=== PATIENT | male | born 1970 | race Caucasian/White ===

== ENCOUNTER 2017-07-16 03:55 | Inpatient (IN) | payer MEDICAID ==
[~2017-07-16] VITALS: Ht 175.3 cm; Wt 108.0 kg
[2017-07-16 05:17] LABS: PLATELET COUNT 164 x10^3mcL (130-400); RED CELL DISTRIBUTION WIDTH 13.1 % (11.5-14.5)
[2017-07-16 05:18] LABS: BASOPHIL % 0 % (0-2)
[2017-07-16 05:24] LABS: CALCIUM 9.8 mg/dL (8.5-10.1); CARBON DIOXIDE 25.8 mmol/L (21-32); CHLORIDE SERUM 94 mmol/L (98-107); CREATININE SERUM 0.9 mg/dL (0.7-1.3); GFR1 > 60 mL/min; GLUCOSE SERUM 376 mg/dL (74-106); POTASSIUM SERUM 3.9 mmol/L (3.5-5.1); SODIUM SERUM 136 mmol/L (136-145)
[2017-07-16] MEDS ORDERED: METFORMIN HCL500 MG (05:41)
[2017-07-16] MEDS ORDERED: LISINOPRIL40 MG (05:42)
[2017-07-16 05:43] LABS: ALBUMIN 3.6 g/dL (3.4-5.0); ALKALINE PHOSPHATASE 107 U/L (46-116); ALT/SGPT 30 U/L (16-63); AST/SGOT 17 U/L (15-37); BILIRUBIN TOTAL 1.07 mg/dL (0.20-1.00); LIPASE 144 IU/L (73-393)
[2017-07-16 05:47] LABS: TOTAL PROTEIN, SERUM 8.4 g/dL (6.4-8.2)
[2017-07-16 07:09] LABS: MAGNESIUM 1.7 mg/dL (1.8-2.4); PHOSPHOROUS 4.6 mg/dL (2.5-4.9)
[2017-07-16 07:10] LABS: CHOLESTEROL/HDL RATIO 3.7
[2017-07-16 07:30] LABS: T3 TOTAL 1.15 ng/mL
[2017-07-16 08:32] LABS: FREE THYROXINE INDEX 3.4 ug/dL (1.4-4.5); T4(THYROXINE) 9.9 ug/dL (4.7-13.3)
[2017-07-16 10:06] LABS: FREE T4 1.34 ng/dL (0.76-1.46)
[2017-07-16 11:07] VITALS: BP 139/91
[2017-07-16 13:47] VITALS: BP 146/87
[2017-07-16 17:20] VITALS: BP 114/69
[2017-07-16 20:44] VITALS: BP 126/75
[2017-07-16 21:42] LABS: AMPHETAMINE QUAL UR NONE DETECTED (NEG <=1000)
[2017-07-17 06:03] VITALS: BP 116/74
[2017-07-17 06:34] LABS: BASOPHIL % 0.3 % (0-2); PLATELET COUNT 136 x10^3mcL (130-400); RED CELL DISTRIBUTION WIDTH 13.7 % (11.5-14.5)
[2017-07-17 06:41] LABS: CALCIUM 7.8 mg/dL (8.5-10.1); CHLORIDE SERUM 109 mmol/L (98-107); CREATININE SERUM 0.8 mg/dL (0.7-1.3); GFR1 > 60 mL/min; GLUCOSE SERUM 192 mg/dL (74-106); MAGNESIUM 2.1 mg/dL (1.8-2.4); POTASSIUM SERUM 3.7 mmol/L (3.5-5.1); SODIUM SERUM 143 mmol/L (136-145)
[2017-07-17 09:17] VITALS: BP 115/67
[2017-07-17 14:22] VITALS: BP 131/83
[2017-07-17 17:13] VITALS: BP 147/86
[2017-07-17 19:27] VITALS: Ht 175.3 cm; Wt 108.0 kg
[2017-07-17 20:26] VITALS: BP 128/78
[2017-07-18 05:10] VITALS: BP 136/79
[2017-07-18 06:58] LABS: CALCIUM 8.1 mg/dL (8.5-10.1); CARBON DIOXIDE 24.3 mmol/L (21-32); CHLORIDE SERUM 108 mmol/L (98-107); CREATININE SERUM 0.7 mg/dL (0.7-1.3); GFR1 > 60 mL/min; GLUCOSE SERUM 163 mg/dL (74-106); SODIUM SERUM 141 mmol/L (136-145)
[2017-07-18 07:07] LABS: BASOPHIL % 0.3 % (0-2); RED CELL DISTRIBUTION WIDTH 13.8 % (11.5-14.5)
[2017-07-18 07:10] LABS: PLATELET COUNT 125 x10^3mcL (130-400)
[2017-07-18 09:33] VITALS: BP 161/93
[2017-07-18] MEDS ORDERED: LEVEMIR100 U/M1 SC (09:39)
[2017-07-18 13:09] VITALS: BP 161/93
[2017-07-18 13:34] VITALS: BP 144/98
[2017-07-18] MEDS ORDERED: TEST STRIPS1 EACH MC (13:46)
== END 2017-07-18 14:30 | disposition home or self-care (01) | DRG 221 ==
LOC: ED 03:55 → DU 06:19
PROVIDERS: Emergency Medicine; Surgery; ADMIT Family Medicine
PROC: 0WQF0ZZ Repair Abdominal Wall, Open Approach (ICD-10-PCS; 2017-07-16)
PROC: 0DB80ZZ Excision of Small Intestine, Open Approach (ICD-10-PCS; principal; 2017-07-16 08:00)
DX: K42.1 Umbilical hernia with gangrene (principal); D68.69 Other thrombophilia; E11.59 Type 2 diabetes mellitus with other circulatory complications; E87.8 Other disorders of electrolyte and fluid balance, not elsewhere classified; E11.65 Type 2 diabetes mellitus with hyperglycemia; E83.42 Hypomagnesemia; E66.9 Obesity, unspecified; Z68.32 Body mass index [BMI] 32.0-32.9, adult; I10 Essential (primary) hypertension; L40.0 Psoriasis vulgaris; E78.5 Hyperlipidemia, unspecified; Z79.84 Long term (current) use of oral hypoglycemic drugs; Z22.322 Carrier or suspected carrier of Methicillin resistant Staphylococcus aureus
CPT/HCPCS: 82962; 83880; 84439; J0330; J0690; J1815; J1885; J2250; J2270; J2405; J2704; J2710; J3010; J3475; J3490; J7030; Q0092

== ENCOUNTER 2017-07-24 16:55 | Emergency (ER) | payer MEDICAID ==
[~2017-07-24] VITALS: Ht 175.3 cm; Wt 107.0 kg
[~2017-07-24 16:55] MED LIST: LEVEMIR100 U/M1 SC; LISINOPRIL40 MG; METFORMIN HCL500 MG; TEST STRIPS1 EACH MC
[2017-07-24 19:26] VITALS: BP 135/80
== END 2017-07-24 19:20 | disposition home or self-care (01) ==
LOC: ED 16:55
DX: T81.30XD Disruption of wound, unspecified, subsequent encounter (principal); I10 Essential (primary) hypertension; E11.9 Type 2 diabetes mellitus without complications; Z90.49 Acquired absence of other specified parts of digestive tract

== ENCOUNTER 2017-07-28 22:30 | Inpatient (IN) | payer MEDICAID ==
[~2017-07-28] VITALS: Ht 175.3 cm; Wt 105.7 kg
[2017-07-29 02:22] LABS: CALCIUM 9.3 mg/dL (8.5-10.1); CARBON DIOXIDE 28.9 mmol/L (21-32); CHLORIDE SERUM 102 mmol/L (98-107); CREATININE SERUM 0.8 mg/dL (0.7-1.3); GFR1 > 60 mL/min; GLUCOSE SERUM 246 mg/dL (74-106); POTASSIUM SERUM 3.9 mmol/L (3.5-5.1); SODIUM SERUM 139 mmol/L (136-145)
[2017-07-29 02:25] LABS: ALBUMIN 3.2 g/dL (3.4-5.0); ALKALINE PHOSPHATASE 81 U/L (46-116); ALT/SGPT 19 U/L (16-63); AST/SGOT 12 U/L (15-37); BILIRUBIN TOTAL 0.43 mg/dL (0.20-1.00); TOTAL PROTEIN, SERUM 7.5 g/dL (6.4-8.2)
[2017-07-29 02:35] LABS: BASOPHIL % 0.7 % (0-2); PLATELET COUNT 206 x10^3mcL (130-400); RED CELL DISTRIBUTION WIDTH 12.4 % (11.5-14.5)
[2017-07-29 04:12] LABS: T3 TOTAL 1.04 ng/mL
[2017-07-29 04:24] VITALS: BP 156/99
[2017-07-29 04:27] LABS: MAGNESIUM 1.5 mg/dL (1.8-2.4); PHOSPHOROUS 3.7 mg/dL (2.5-4.9)
[2017-07-29 04:28] LABS: CHOLESTEROL/HDL RATIO 1.8
[2017-07-29 04:38] LABS: FREE T4 1.17 ng/dL (0.76-1.46); FREE THYROXINE INDEX 3.6 ug/dL (1.4-4.5); T4(THYROXINE) 10.2 ug/dL (4.7-13.3)
[2017-07-29 04:57] VITALS: BP 156/99
[2017-07-29 06:14] LABS: microscopic required? NO
[2017-07-29 07:06] LABS: urine erythrocyte NEGATIVE (NEGATIVE)
[2017-07-29 07:18] LABS: AMPHETAMINE QUAL UR NONE DETECTED (NEG <=1000)
[2017-07-29 09:39] VITALS: BP 148/90
[2017-07-29 13:37] VITALS: BP 134/87
[2017-07-29 17:53] VITALS: BP 143/94
[2017-07-29 21:46] VITALS: BP 113/77
[2017-07-30 05:55] VITALS: BP 127/80
[2017-07-30 06:37] LABS: CALCIUM 8.4 mg/dL (8.5-10.1); CARBON DIOXIDE 25.4 mmol/L (21-32); CHLORIDE SERUM 107 mmol/L (98-107); CREATININE SERUM 0.7 mg/dL (0.7-1.3); GFR1 > 60 mL/min; GLUCOSE SERUM 156 mg/dL (74-106); MAGNESIUM 1.7 mg/dL (1.8-2.4); POTASSIUM SERUM 3.7 mmol/L (3.5-5.1); SODIUM SERUM 140 mmol/L (136-145)
[2017-07-30 06:45] LABS: BASOPHIL % 0.5 % (0-2); PLATELET COUNT 195 x10^3mcL (130-400); RED CELL DISTRIBUTION WIDTH 12.9 % (11.5-14.5)
[2017-07-30 09:15] VITALS: BP 145/92
[2017-07-30 11:40] VITALS: BP 151/92
[2017-07-30 18:12] VITALS: BP 140/81
[2017-07-30 21:36] VITALS: BP 133/88
[2017-07-31 05:37] VITALS: BP 153/94
[2017-07-31 06:14] LABS: BASOPHIL % 0.6 % (0-2); PLATELET COUNT 203 x10^3mcL (130-400); RED CELL DISTRIBUTION WIDTH 13.2 % (11.5-14.5)
[2017-07-31 06:27] LABS: CALCIUM 8.6 mg/dL (8.5-10.1); CHLORIDE SERUM 106 mmol/L (98-107); CREATININE SERUM 0.7 mg/dL (0.7-1.3); GFR1 > 60 mL/min; GLUCOSE SERUM 167 mg/dL (74-106); MAGNESIUM 1.6 mg/dL (1.8-2.4); POTASSIUM SERUM 3.8 mmol/L (3.5-5.1); SODIUM SERUM 140 mmol/L (136-145)
[2017-07-31 08:00] VITALS: BP 141/92
[2017-07-31 11:55] VITALS: BP 155/97
[2017-07-31 16:55] VITALS: BP 152/87
[2017-07-31 21:36] VITALS: BP 147/89
[2017-08-01 05:25] VITALS: BP 150/88
[2017-08-01 06:05] LABS: CALCIUM 9.1 mg/dL (8.5-10.1); CARBON DIOXIDE 26.7 mmol/L (21-32); CHLORIDE SERUM 104 mmol/L (98-107); CREATININE SERUM 0.8 mg/dL (0.7-1.3); GFR1 > 60 mL/min; GLUCOSE SERUM 156 mg/dL (74-106); MAGNESIUM 2.3 mg/dL (1.8-2.4); POTASSIUM SERUM 3.4 mmol/L (3.5-5.1); SODIUM SERUM 140 mmol/L (136-145)
[2017-08-01 06:28] LABS: BASOPHIL % 0.6 % (0-2); PLATELET COUNT 220 x10^3mcL (130-400)
[2017-08-01 09:00] VITALS: BP 147/93
[2017-08-01 13:49] VITALS: BP 122/86
[2017-08-01] MEDS ORDERED: HYDROCHLOROTH12.5 M3 PO (14:12)
[2017-08-01] MEDS ORDERED: NORCO1 TA2 PO (14:13)
[2017-08-01] MEDS ORDERED: COL100 PO (14:14)
[2017-08-01] MEDS ORDERED: GOOD SENSE ASP325 MG PO (14:26)
[2017-08-01 14:44] VITALS: BP 122/86
[2017-08-01] MEDS ORDERED: LEVOFLOXACIN500 M1 PO (15:09)
[2017-08-01] MEDS ORDERED: LAC PO (15:09)
[2017-08-01] MEDS ORDERED: ASPIR 8181 MG PO (16:01)
== END 2017-08-01 16:00 | disposition home or self-care (01) | DRG 721 ==
LOC: ED 22:30 → DU 07-29 03:02
PROVIDERS: Emergency Medicine; ADMIT Family Medicine
DX: T81.4XXA Infection following a procedure, initial encounter (principal); D68.69 Other thrombophilia; E11.59 Type 2 diabetes mellitus with other circulatory complications; E44.1 Mild protein-calorie malnutrition; E11.65 Type 2 diabetes mellitus with hyperglycemia; E83.42 Hypomagnesemia; L02.216 Cutaneous abscess of umbilicus; B96.1 Klebsiella pneumoniae [K. pneumoniae] as the cause of diseases classified elsewhere; I10 Essential (primary) hypertension; L40.9 Psoriasis, unspecified; E78.5 Hyperlipidemia, unspecified; E66.9 Obesity, unspecified; Z68.34 Body mass index [BMI] 34.0-34.9, adult; Z79.4 Long term (current) use of insulin; Y83.4 Other reconstructive surgery as the cause of abnormal reaction of the patient, or of later complication, without mention of misadventure at the time of the procedure; Y92.009 Unspecified place in unspecified non-institutional (private) residence as the place of occurrence of the external cause
CPT/HCPCS: 82962; 83880; 84439; J0295; J0690; J1200; J1885; J1940; J1956; J2270; J2405; J3475; J7030; Q0092

== ENCOUNTER 2017-08-19 20:12 | Emergency (ER) | payer SELFPAY ==
[~2017-08-19 20:12] MED LIST changes: +ASPIR 8181 MG PO; +COL100 PO; +GOOD SENSE ASP325 MG PO; +HYDROCHLOROTH12.5 M3 PO; +LAC PO; +LEVOFLOXACIN500 M1 PO; +NORCO1 TA2 PO
[2017-08-19 23:59] VITALS: BP 135/88
== END 2017-08-19 23:59 | disposition home or self-care (01) ==
LOC: ED 20:12
DX: T81.30XA Disruption of wound, unspecified, initial encounter (principal); K43.9 Ventral hernia without obstruction or gangrene; I10 Essential (primary) hypertension; E11.9 Type 2 diabetes mellitus without complications; E78.00 Pure hypercholesterolemia, unspecified; Z79.84 Long term (current) use of oral hypoglycemic drugs

== ENCOUNTER 2020-02-22 13:40 | Inpatient (IN) | payer OTHER ==
[~2020-02-22] VITALS: Ht 175.3 cm; Wt 100.7 kg
[2020-02-22 13:50] VITALS: Ht 175.3 cm; Wt 100.7 kg
[2020-02-22 15:07] LABS: BASOPHIL % 0.1 % (0-2); PLATELET COUNT 222 x10^3mcL (130-400); RED CELL DISTRIBUTION WIDTH 14.5 % (11.5-14.5)
[2020-02-22 15:21] LABS: ALKALINE PHOSPHATASE 105 U/L (46-116); ALT/SGPT 14 U/L (16-63); AST/SGOT 4 U/L (15-37); CALCIUM 9.1 mg/dL (8.5-10.1); CARBON DIOXIDE 16.6 mmol/L (21-32); CHLORIDE SERUM 97 mmol/L (98-107); CREATININE SERUM 1.3 mg/dL (0.7-1.3); GFR1 > 60 mL/min; GLUCOSE SERUM 359 mg/dL (74-106); POTASSIUM SERUM 3.8 mmol/L (3.5-5.1); SODIUM SERUM 134 mmol/L (136-145); TOTAL PROTEIN, SERUM 8.2 g/dL (6.4-8.2)
[2020-02-22 15:22] LABS: ALBUMIN 2.6 g/dL (3.4-5.0)
[2020-02-22 16:18] LABS: UA SPECIFIC GRAVITY 1.025 (1.005-1.035); microscopic required? YES; urine erythrocyte NEGATIVE (NEGATIVE)
[2020-02-22 18:20] LABS: C REACTIVE PROTEIN 43.9 mg/dL (<=0.9); CHOLESTEROL/HDL RATIO 2.5
[2020-02-22 20:15] LABS: CALCIUM 8.5 mg/dL (8.5-10.1); CARBON DIOXIDE 17.5 mmol/L (21-32); CHLORIDE SERUM 102 mmol/L (98-107); GFR1 > 60 mL/min; GLUCOSE SERUM 208 mg/dL (74-106); MAGNESIUM 1.7 mg/dL (1.8-2.4); POTASSIUM SERUM 3.9 mmol/L (3.5-5.1); SODIUM SERUM 135 mmol/L (136-145)
[2020-02-23 00:36] LABS: CALCIUM 8.4 mg/dL (8.5-10.1); CARBON DIOXIDE 17.7 mmol/L (21-32); CHLORIDE SERUM 104 mmol/L (98-107); CREATININE SERUM 0.8 mg/dL (0.7-1.3); GFR1 > 60 mL/min; GLUCOSE SERUM 267 mg/dL (74-106); MAGNESIUM 1.7 mg/dL (1.8-2.4); PHOSPHOROUS 1.6 mg/dL (2.5-4.9); POTASSIUM SERUM 4.6 mmol/L (3.5-5.1); SODIUM SERUM 135 mmol/L (136-145)
[2020-02-23] MEDS ORDERED: EPANED1 MG/1 ML PO (01:01)
[2020-02-23 04:20] LABS: CALCIUM 8.2 mg/dL (8.5-10.1); CARBON DIOXIDE 20.4 mmol/L (21-32); CHLORIDE SERUM 103 mmol/L (98-107); CREATININE SERUM 0.8 mg/dL (0.7-1.3); GFR1 > 60 mL/min; GLUCOSE SERUM 223 mg/dL (74-106); MAGNESIUM 1.6 mg/dL (1.8-2.4); SODIUM SERUM 134 mmol/L (136-145)
[2020-02-23 04:33] LABS: BASOPHIL % 0 % (0-2); PLATELET COUNT 186 x10^3mcL (130-400); RED CELL DISTRIBUTION WIDTH 14.2 % (11.5-14.5)
[2020-02-23 09:08] LABS: CALCIUM 7.1 mg/dL (8.5-10.1); CARBON DIOXIDE 16.2 mmol/L (21-32); CHLORIDE SERUM 103 mmol/L (98-107); CREATININE SERUM 0.7 mg/dL (0.7-1.3); GFR1 > 60 mL/min; GLUCOSE SERUM 149 mg/dL (74-106); MAGNESIUM 1.4 mg/dL (1.8-2.4); PHOSPHOROUS 1.1 mg/dL (2.5-4.9); SODIUM SERUM 131 mmol/L (136-145)
[2020-02-23 09:14] LABS: POTASSIUM SERUM 5.6 mmol/L (3.5-5.1)
[2020-02-23 12:53] LABS: AMPHETAMINE QUAL UR NONE DETECTED (See below)
[2020-02-23 14:31] LABS: CALCIUM 7.7 mg/dL (8.5-10.1); CARBON DIOXIDE 20.9 mmol/L (21-32); CHLORIDE SERUM 103 mmol/L (98-107); CREATININE SERUM 0.8 mg/dL (0.7-1.3); GFR1 > 60 mL/min; GLUCOSE SERUM 171 mg/dL (74-106); MAGNESIUM 1.4 mg/dL (1.8-2.4); PHOSPHOROUS 1.1 mg/dL (2.5-4.9); POTASSIUM SERUM 3.3 mmol/L (3.5-5.1); SODIUM SERUM 136 mmol/L (136-145)
[2020-02-23 17:19] LABS: CALCIUM 7.6 mg/dL (8.5-10.1); CARBON DIOXIDE 19.1 mmol/L (21-32); CHLORIDE SERUM 104 mmol/L (98-107); CREATININE SERUM 0.7 mg/dL (0.7-1.3); GFR1 > 60 mL/min; GLUCOSE SERUM 175 mg/dL (74-106); MAGNESIUM 1.4 mg/dL (1.8-2.4); PHOSPHOROUS 1.1 mg/dL (2.5-4.9); POTASSIUM SERUM 3.7 mmol/L (3.5-5.1); SODIUM SERUM 137 mmol/L (136-145)
[2020-02-23 21:50] LABS: CARBON DIOXIDE 19.4 mmol/L (21-32); CHLORIDE SERUM 101 mmol/L (98-107); CREATININE SERUM 0.8 mg/dL (0.7-1.3); GFR1 > 60 mL/min; GLUCOSE SERUM 216 mg/dL (74-106); POTASSIUM SERUM 3.6 mmol/L (3.5-5.1); SODIUM SERUM 134 mmol/L (136-145)
[2020-02-23 21:53] LABS: MAGNESIUM 1.5 mg/dL (1.8-2.4); PHOSPHOROUS 1.3 mg/dL (2.5-4.9)
[2020-02-24 02:51] LABS: CALCIUM 6.4 mg/dL (8.5-10.1); CARBON DIOXIDE 15.9 mmol/L (21-32); CHLORIDE SERUM 107 mmol/L (98-107); CREATININE SERUM 0.6 mg/dL (0.7-1.3); GFR1 > 60 mL/min; GLUCOSE SERUM 177 mg/dL (74-106); MAGNESIUM 1.3 mg/dL (1.8-2.4); POTASSIUM SERUM 4.3 mmol/L (3.5-5.1); SODIUM SERUM 137 mmol/L (136-145)
[2020-02-24 04:20] LABS: BASOPHIL % 0.2 % (0-2); PLATELET COUNT 164 x10^3mcL (130-400); RED CELL DISTRIBUTION WIDTH 13.9 % (11.5-14.5)
[2020-02-24 04:28] LABS: ALKALINE PHOSPHATASE 74 U/L (46-116); ALT/SGPT 23 U/L (16-63); AST/SGOT 41 U/L (15-37); BILIRUBIN TOTAL 0.4 mg/dL (0.20-1.00); CALCIUM 7.7 mg/dL (8.5-10.1); CARBON DIOXIDE 18.1 mmol/L (21-32); CHLORIDE SERUM 102 mmol/L (98-107); CREATININE SERUM 0.9 mg/dL (0.7-1.3); GFR1 > 60 mL/min; GLUCOSE SERUM 174 mg/dL (74-106); MAGNESIUM 1.4 mg/dL (1.8-2.4); PHOSPHOROUS 1.2 mg/dL (2.5-4.9); SODIUM SERUM 134 mmol/L (136-145); TOTAL PROTEIN, SERUM 6.5 g/dL (6.4-8.2)
[2020-02-24 04:36] LABS: C REACTIVE PROTEIN 29.6 mg/dL (<=0.9)
[2020-02-24 08:26] LABS: CALCIUM 8.4 mg/dL (8.5-10.1); CARBON DIOXIDE 26.1 mmol/L (21-32); CHLORIDE SERUM 106 mmol/L (98-107); CREATININE SERUM 0.5 mg/dL (0.7-1.3); GFR1 > 60 mL/min; GLUCOSE SERUM 88 mg/dL (74-106); MAGNESIUM 2.1 mg/dL (1.8-2.4); PHOSPHOROUS 3.1 mg/dL (2.5-4.9); POTASSIUM SERUM 3.4 mmol/L (3.5-5.1); SODIUM SERUM 143 mmol/L (136-145)
[2020-02-24 12:34] LABS: CALCIUM 7.3 mg/dL (8.5-10.1); CARBON DIOXIDE 20.4 mmol/L (21-32); CHLORIDE SERUM 101 mmol/L (98-107); CREATININE SERUM 0.7 mg/dL (0.7-1.3); GFR1 > 60 mL/min; GLUCOSE SERUM 184 mg/dL (74-106); MAGNESIUM 1.4 mg/dL (1.8-2.4); PHOSPHOROUS 1.5 mg/dL (2.5-4.9); POTASSIUM SERUM 3.4 mmol/L (3.5-5.1); SODIUM SERUM 132 mmol/L (136-145)
[2020-02-24 22:18] LABS: ALBUMIN 1.7 g/dL (3.4-5.0); ALKALINE PHOSPHATASE 68 U/L (46-116); ALT/SGPT 30 U/L (16-63); AST/SGOT 53 U/L (15-37); BILIRUBIN TOTAL 0.3 mg/dL (0.20-1.00); CALCIUM 7.8 mg/dL (8.5-10.1); CARBON DIOXIDE 19.2 mmol/L (21-32); CHLORIDE SERUM 102 mmol/L (98-107); CREATININE SERUM 0.8 mg/dL (0.7-1.3); GFR1 > 60 mL/min; GLUCOSE SERUM 266 mg/dL (74-106); POTASSIUM SERUM 3.9 mmol/L (3.5-5.1); SODIUM SERUM 134 mmol/L (136-145); TOTAL PROTEIN, SERUM 5.9 g/dL (6.4-8.2)
[2020-02-25 00:12] VITALS: BP 126/82
[2020-02-25 05:05] VITALS: BP 117/78
[2020-02-25 07:30] LABS: BASOPHIL % 0.9 % (0-2); CALCIUM 7.9 mg/dL (8.5-10.1); CARBON DIOXIDE 22.4 mmol/L (21-32); CHLORIDE SERUM 105 mmol/L (98-107); CREATININE SERUM 0.6 mg/dL (0.7-1.3); GFR1 > 60 mL/min; GLUCOSE SERUM 146 mg/dL (74-106); MAGNESIUM 1.6 mg/dL (1.8-2.4); PHOSPHOROUS 2.1 mg/dL (2.5-4.9); PLATELET COUNT 151 x10^3mcL (130-400); POTASSIUM SERUM 3.6 mmol/L (3.5-5.1); SODIUM SERUM 139 mmol/L (136-145)
[2020-02-25 07:35] LABS: RED CELL DISTRIBUTION WIDTH 14.6 % (11.5-14.5)
[2020-02-25 09:31] VITALS: BP 127/82
[2020-02-25 12:06] LABS: C REACTIVE PROTEIN 22.9 mg/dL (<=0.9)
[2020-02-25 13:16] VITALS: BP 157/89
[2020-02-25 17:11] VITALS: BP 146/78
[2020-02-25 21:21] VITALS: BP 136/89
[2020-02-26 04:09] VITALS: BP 149/63
[2020-02-26 08:48] LABS: BASOPHIL % 0.3 % (0-2); PLATELET COUNT 154 x10^3mcL (130-400); RED CELL DISTRIBUTION WIDTH 14.3 % (11.5-14.5)
[2020-02-26 09:16] VITALS: BP 145/56
[2020-02-26 09:18] LABS: CALCIUM 7.9 mg/dL (8.5-10.1); CARBON DIOXIDE 26.9 mmol/L (21-32); CHLORIDE SERUM 97 mmol/L (98-107); CREATININE SERUM 0.7 mg/dL (0.7-1.3); GFR1 > 60 mL/min; GLUCOSE SERUM 187 mg/dL (74-106); MAGNESIUM 1.4 mg/dL (1.8-2.4); POTASSIUM SERUM 3.7 mmol/L (3.5-5.1); SODIUM SERUM 133 mmol/L (136-145)
[2020-02-26 12:15] VITALS: BP 117/77
[2020-02-26 15:42] VITALS: BP 113/69
[2020-02-26 19:59] VITALS: BP 142/72
[2020-02-27 04:31] VITALS: BP 99/60
[2020-02-27 08:27] LABS: BASOPHIL % 0.2 % (0-2); PLATELET COUNT 141 x10^3mcL (130-400); RED CELL DISTRIBUTION WIDTH 14.5 % (11.5-14.5)
[2020-02-27 08:45] VITALS: BP 93/64
[2020-02-27 09:26] LABS: CALCIUM 7.7 mg/dL (8.5-10.1); CARBON DIOXIDE 26.1 mmol/L (21-32); CHLORIDE SERUM 100 mmol/L (98-107); CREATININE SERUM 0.8 mg/dL (0.7-1.3); GFR1 > 60 mL/min; GLUCOSE SERUM 140 mg/dL (74-106); MAGNESIUM 1.6 mg/dL (1.8-2.4); PHOSPHOROUS 3.1 mg/dL (2.5-4.9); POTASSIUM SERUM 3.6 mmol/L (3.5-5.1); SODIUM SERUM 135 mmol/L (136-145)
[2020-02-27 10:05] LABS: C REACTIVE PROTEIN 16.8 mg/dL (<=0.9)
[2020-02-27 12:03] VITALS: BP 109/70
[2020-02-27 16:40] VITALS: BP 118/77
[2020-02-27 20:13] VITALS: BP 128/68
[2020-02-28 04:26] VITALS: BP 118/77
[2020-02-28 07:18] LABS: BASOPHIL % 0.2 % (0-2); PLATELET COUNT 172 x10^3mcL (130-400); RED CELL DISTRIBUTION WIDTH 14.5 % (11.5-14.5)
[2020-02-28 07:48] LABS: CALCIUM 8.2 mg/dL (8.5-10.1); CARBON DIOXIDE 23.9 mmol/L (21-32); CHLORIDE SERUM 101 mmol/L (98-107); CREATININE SERUM 0.8 mg/dL (0.7-1.3); GFR1 > 60 mL/min; GLUCOSE SERUM 240 mg/dL (74-106); MAGNESIUM 1.8 mg/dL (1.8-2.4); PHOSPHOROUS 3.8 mg/dL (2.5-4.9); POTASSIUM SERUM 4.1 mmol/L (3.5-5.1); SODIUM SERUM 136 mmol/L (136-145)
[2020-02-28 07:59] LABS: C REACTIVE PROTEIN 12.3 mg/dL (<=0.9)
[2020-02-28 09:07] VITALS: BP 112/79
[2020-02-28 12:28] VITALS: BP 116/72
[2020-02-28] MEDS ORDERED: BACTRIM1 TAB PO (13:57)
[2020-02-28] MEDS ORDERED: DECADRON6 MG PO (14:00)
[2020-02-28] MEDS ORDERED: XARELTO2.5 MG PO (14:01)
[2020-02-28] MEDS ORDERED: LANTI SQ (14:03)
[2020-02-28] MEDS ORDERED: NOVI SQ (14:05)
[2020-02-28 15:46] VITALS: BP 116/72
[2020-02-28 16:16] VITALS: BP 104/62
== END 2020-02-28 17:03 | disposition home or self-care (01) | DRG 871 ==
LOC: ED 13:40 → IC 17:30 → DU 02-24 17:06
PROVIDERS: Emergency Medicine; ADMIT Family Medicine; ATTEND Family Medicine
PROC: 02HV33Z Insertion of Infusion Device into Superior Vena Cava, Percutaneous Approach (ICD-10-PCS; principal; 2020-02-24)
PROC: B548ZZA Ultrasonography of Superior Vena Cava, Guidance (ICD-10-PCS; 2020-02-24)
DX: A41.89 Other specified sepsis (principal); E11.10 Type 2 diabetes mellitus with ketoacidosis without coma; U07.1 COVID-19; J12.89 Other viral pneumonia; E87.1 Hypo-osmolality and hyponatremia; E44.0 Moderate protein-calorie malnutrition; I10 Essential (primary) hypertension; E78.5 Hyperlipidemia, unspecified; E11.9 Type 2 diabetes mellitus without complications; E83.42 Hypomagnesemia; E83.39 Other disorders of phosphorus metabolism; Z68.32 Body mass index [BMI] 32.0-32.9, adult
CPT/HCPCS: 36600; 82962; 83880; 85378; 87491; 87591; G0378; J0456; J0696; J1100; J1642; J1644; J1815; J3370; J3480; J7030; Q0092; U0003-CS

== ENCOUNTER 2020-03-04 22:50 | Inpatient (IN) | payer SELFPAY ==
[~2020-03-04] VITALS: Ht 175.3 cm; Wt 90.7 kg
[~2020-03-04 22:50] MED LIST changes: +BACTRIM1 TAB PO; +DECADRON6 MG PO; +EPANED1 MG/1 ML PO; +LANTI SQ; +NOVI SQ; +XARELTO2.5 MG PO
[2020-03-04 23:13] VITALS: Ht 175.3 cm; Wt 90.7 kg
--- NOTE | 2020-03-04 23:20 | NUR ---
PT BIB [facility] FOR SOB AFTER EATING. PT REPORTS HE GOT THE HICCUPS AND "COULD NOT BREATH". PER MEDIC PT REPORTED THAT HIS BREATHING STOPPED COMPLETELY. PT ALSO REPORTING THAT HE "THINKS" IT WAS A PANICK ATTACK. PT REPORTS HES BEEN STRESSED ABOUT HIS BLOOD SUGAR. PER MEDIC, PT BLOOD SUGAR 534. PT LUNG SOUNDS CLEAR BILATERALLY AT THIS TIME. PT BREATHING E/U, NO S/S OF DISTRESS NOTED. PT IS A&OX4, BREATHING E/U, NO S/S OF DISTRESS NOTED.
--- NOTE | 2020-03-05 00:10 | NUR ---
PT STATING TO C/O FEELING ANXIOUS. PT NOTED WITH CONTINUOUS HICCUPS, PT TRYING TO HOLD HIS BREATH TO CONTROL THE HICCUPS, HOWEVER UNSUCCESSFUL AT THIS TIME. INFORMED OF PT ANXIETY. AWAITING FURTHER ORDERS.
[2020-03-05 00:30] LABS: BASOPHIL % 0.1 % (0-2); PLATELET COUNT 379 x10^3mcL (130-400); RED CELL DISTRIBUTION WIDTH 13.9 % (11.5-14.5)
[2020-03-05 00:48] LABS: BILIRUBIN TOTAL 0.3 mg/dL (0.20-1.00); CALCIUM 8.6 mg/dL (8.5-10.1); CARBON DIOXIDE 18.1 mmol/L (21-32); CHOLESTEROL/HDL RATIO 3.5; CREATININE SERUM 1.5 mg/dL (0.7-1.3); POTASSIUM SERUM 4.8 mmol/L (3.5-5.1); TOTAL PROTEIN, SERUM 7.1 g/dL (6.4-8.2)
[2020-03-05 00:54] LABS: ALBUMIN 2.2 g/dL (3.4-5.0); T3 TOTAL 0.59 ng/mL
[2020-03-05 01:00] LABS: FREE T4 1.15 ng/dL (0.76-1.46); FREE THYROXINE INDEX 2.1 ug/dL (1.4-4.5); T4(THYROXINE) 5.6 ug/dL (4.7-13.3)
--- NOTE | 2020-03-05 01:14 | NUR ---
PT MEDICATED PER EMAR FOR FEELING "ANXIOUS". PT IS REPORTING THAT HE CONTINUES TO HAVE "PANICK ATTACKS". PT NOTED BREATHING E/U, NO S/S OF DISTRESS NOTED AT THIS TIME. PT IS SITTING UP IN BED AND IN VIEW OF NURSES STATION. 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 VITAL SIGNS STABLE. PT REQUESTED ICE CHIPS, OKAY TO GIVE PER DR DOSHI.
--- NOTE | 2020-03-05 01:40 | NUR ---
PT NOTED RESTING IN BED IN A POSITION OF COMFORT WITH EYES CLOSED. PT EASILY AROUSABLE AND RESPONDS TO VERBAL STIMULI. PT REPORTS "I FEEL BETTER". NO S/S OF DISTRESS NOTED
--- NOTE | 2020-03-05 03:31 | NUR ---
PT ASSISTED WITH URINAL AT THIS TIME. PT ACCIDENTALLY GOT URINE ON PANTS, PT PROVIDED WITH PAPER SCRUBS, NEW SOCK, CHANGE OF BED LINEN, AND NEW BLANKET AT THIS TIME. 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 NO S/S OF DISTRESS NOTED
[2020-03-05 03:46] LABS: microscopic required? NO
[2020-03-05 04:23] LABS: urine erythrocyte NEGATIVE (NEGATIVE)
[2020-03-05 04:36] LABS: AMPHETAMINE QUAL UR NONE DETECTED (See below)
--- NOTE | 2020-03-05 04:52 | NUR ---
PT NOTED RESTING IN BED IN A POSITION OF COMFORT WITH EYES CLOSED. PT EASILY AROUSABLE, BREATHING E/U, NO S/S OF DISTRESS NOTED. 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
--- NOTE | 2020-03-05 06:55 | NUR ---
PT NOTED RESTING IN BED IN A POSITION OF COMFORT WITH EYES CLOSED. PT BREATHING E/U, NO S/S OF DISTRESS NOTED. PT REMAINS ON FULL APPEALS NURSE AND IN VIEW OF NURSES STATION.
--- NOTE | 2020-03-05 07:11 | NUR ---
RECEIVED REPORT FROM ANGIE LYNN
--- NOTE | 2020-03-05 07:21 | NUR ---
REPORT GIVEN TO SHANE ESTEVEZ TO ASSUME PT CARE. ALL QUESTIONS AND CONCERNS ANSWERED AT THIS TIME.
--- NOTE | 2020-03-05 08:00 | NUR ---
PT SITTING UP IN BED, AAOX4, NO ACUTE DISTRESS NOTED, PT EATING BREAKFAST, DENIES PAIN, SAFETY PRECAUTIONS IN PLACE, CALL LIGHT WITHIN REACH, WILL MONITOR.
--- NOTE | 2020-03-05 08:35 | NUR ---
PT TO CT VIA WHEELCHAIR WITH TECH,
--- NOTE | 2020-03-05 08:45 | NUR ---
PT RETURNED FROM CT VIA WHEELCHAIR WITH NO INCIDENT
--- NOTE | 2020-03-05 09:01 | NUR ---
CALLED TO GIVE REPORT TO JURGEN, WILL CALL BACK IN COVID SECTION
--- NOTE | 2020-03-05 09:12 | NUR ---
LAB AT BEDSIDE
--- NOTE | 2020-03-05 09:40 | NUR ---
REPORT GIVEN TO SHANE SEAMAN TO ASSUME CARE OF THE PT.
[2020-03-05 10:16] LABS: MAGNESIUM 1.7 mg/dL (1.8-2.4); PHOSPHOROUS 2.8 mg/dL (2.5-4.9)
--- NOTE | 2020-03-05 10:16 | NUR ---
RECEIVED PT FROM ED VIA [facility]UR[facility]A ACCOMPANIED BY NURSES. PT AOX4, VERBALLY RESPONSIVE, ABLE TO MAKE NEEDS KNOWN. ON DROPLET PRECAUTION FOR POSITIVE TEST FOR COVID19 ON 02/26/2020. CURRENTLY ON ROOM AIR WITH 92%SAT, DENIES SOB, NO ACUTE RESPIRATORY DISTRESS. ATTACHED TO TELE 43 NSR. DENIES CHEST PAIN/PRESSURE. NO PAIN OR DISCOMFORT AT THIS TIME. PT IS AMBULATORY AT BASELINE WITH MILD GENERALIZED WEAKNESS. ORIENTED PATIENT TO ROOM, CALL LIGHT SYSTEM, AND BED CONTROLS, ABLE TO DEMONSTRATE UNDERSTANDING. RECEIVED PT WITH IV SITE TO RFA 20G AND TO LEFT HAND 22G CONTINUE WITH NS AT 100CC/HR. CALL LIGHT WITHIN REACH. WILL CONTINUE TO MONITOR.
[2020-03-05 11:41] VITALS: BP 118/72
[2020-03-05 13:33] VITALS: BP 131/79
[2020-03-05 16:13] VITALS: BP 129/72
--- NOTE | 2020-03-05 18:50 | NUR ---
PT IN BED AWAKE WATCHING TV. ON DROPLET ISOLATION FOR PREVIOUS POSITIVE RESULT FOR COVID19. ON RA, DENIES SOB, NO ACUTE RESPIRATORY DISTRESS. NO PAIN OR DISCOMFORT AT THIS TIME. ON TELE 43 NSR. IV SITE TO [facility] RUNNING ON NS AT 100CC/HR. IV TO [facility]. BED IN LOWEST POSITION. CALL LIGHT WITHIN REACH. WILL ENDORSE CARE TO IN COMING NURSE.
--- NOTE | 2020-03-05 19:31 | NUR ---
Received pt. from day shift, currently resting in bed. Pt. is a/o x4, able to make needs known, able to follow commands, no c/o h/a. Pt. is breathign e/u on RA, no acute distress or SOB noted. Pt. has no c/o chest pain or pain at this time, will cont. to monitor. Pt. LBM today, no issues reported, or c/o of pain. Pt. at this time has BRP, slight gen weakness, no skin issues, and c/o of hiccups, given thorazine at 1713, will cont. to monitor. 2 IV sites, patent on RFA and AAKASH, both dressing CDI, NS running @ 100 cc on RFA, will cont. to monitor. Pt. educated on when and how to use call light system, bed set at lowest position, will cont. to monitor.
[2020-03-05 21:39] VITALS: BP 120/78
--- NOTE | 2020-03-06 00:49 | NUR ---
Pt. c/o of hiccups and generalized body pain, will medicate as ordered and cont. to monitor. Otherwise, pt. stable, no acute distress or SOB noted, able to make needs known, will cont. to monitor
[2020-03-06 04:03] LABS: BASOPHIL % 0.4 % (0-2); PLATELET COUNT 341 x10^3mcL (130-400)
[2020-03-06 04:12] LABS: CALCIUM 7.7 mg/dL (8.5-10.1); CARBON DIOXIDE 22.8 mmol/L (21-32); CHLORIDE SERUM 100 mmol/L (98-107); CREATININE SERUM 0.8 mg/dL (0.7-1.3); GFR1 > 60 mL/min; GLUCOSE SERUM 193 mg/dL (74-106); POTASSIUM SERUM 3.8 mmol/L (3.5-5.1); SODIUM SERUM 134 mmol/L (136-145)
[2020-03-06 05:16] VITALS: BP 100/63
--- NOTE | 2020-03-06 05:56 | NUR ---
Pt. noted to be resting thorughotu shift, did c/o of hiccups and generalized body pain x1. Gave pt. medication as ordered. Pt. tolerated medication well. Pt. IV site patent and dressing CDI. otherwise, pt. stable, as per MD notes, pt. to be d/c if labs are stable, and pt. cont. to be on RA w/o episodes of SOB. Pt. noted to not have any episodes of SOB throughout shift, ambulatory to the restroom, BRP. Pt. Lab values received this AM, will cont. to monitor and endorse care to next shift RN.
--- NOTE | 2020-03-06 06:13 | NUR ---
Pt. c/o hiccups at this time, will medicate as ordered, cont. to monitor and endorse care to next shift RN.
[2020-03-06 07:31] LABS: MAGNESIUM 1.5 mg/dL (1.8-2.4)
[2020-03-06 08:37] VITALS: BP 107/62
--- NOTE | 2020-03-06 09:00 | NUR ---
SEEN IN BED AAOX4. NO RESP DISTRESS NOTED. DENIES PAIN. NSR ON TELE MONITOR. DIMINISHED TO BASES. STATED BRP AND VOIDS FREELY. S/L TO LT HAND AND RFA INTACT AND PATENT. PLAN OF CARE DISCUSSED, CALL LIGHT PLACED WITHIN EASY REACH, SIDERAILS UP X2.
[2020-03-06] MEDS ORDERED: THO10 PO (12:17)
[2020-03-06] MEDS ORDERED: PROTONIX20 MG PO (12:18)
[2020-03-06] MEDS ORDERED: VENTOLIN H0.09 MG/A1 INH (13:29)
[2020-03-06 14:17] VITALS: BP 130/70
--- NOTE | 2020-03-06 19:00 | NUR ---
DISCHARGE INSTRUCTION GIVEN. PATIENT VERBALIZED UNDERSTANDING. S/L TO LT HAND AND RFA REMOVED, DRSG APPLIED. ALL PERSONAL BELONGINGS KEPT WITH PATIENT. BROUGHT VIA WHEELCHAIR TO LOBBY PICKED UP BY HIS BROTHER. CONDITION STABLE UPON DISCHARGE.
--- NOTE | 2020-03-07 07:49 | NUR ---
ECHOCARDIOGRAM NOT DONE-DISCHARGED
== END 2020-03-06 19:00 | disposition home or self-care (01) | DRG 177 ==
LOC: ED 22:50 → DU 03-05 02:02
PROVIDERS: Specialist; ADMIT Internal Medicine; ATTEND Internal Medicine
DX: U07.1 COVID-19 (principal); J12.89 Other viral pneumonia; E11.10 Type 2 diabetes mellitus with ketoacidosis without coma; E87.1 Hypo-osmolality and hyponatremia; N17.9 Acute kidney failure, unspecified; E44.0 Moderate protein-calorie malnutrition; F41.9 Anxiety disorder, unspecified; I10 Essential (primary) hypertension; E11.65 Type 2 diabetes mellitus with hyperglycemia; Z60.2 Problems related to living alone; E78.1 Pure hyperglyceridemia; E83.42 Hypomagnesemia; Z90.49 Acquired absence of other specified parts of digestive tract; Z79.899 Other long term (current) drug therapy
CPT/HCPCS: 36600; 82962; 83880; 84439; 87804; 94150; C9113; G0378; J0456; J0696; J1644; J1815; J2060; J2543; J3535; J7030; J7050; J7060; Q0092; Q0161; U0003-CS